=== PATIENT | female | born 1980 | race Caucasian/White ===

== ENCOUNTER 2019-02-04 12:42 | Emergency (ER) | payer SELFPAY, OTHER | END 2019-02-04 16:55 | disposition home or self-care (01) | LOC: JER 12:42 ==

== ENCOUNTER 2019-05-07 06:25 | Inpatient (IN) | payer OTHER ==
[2019-05-07 07:02] VITALS: BMI 66.6
[2019-05-07] MEDS ORDERED: ELECTROLYTE-148 SOLN 500 ML IV ONE ×2 (07:15→07:54)
[2019-05-07] MEDS ORDERED: CITRIC ACID/SODIUM CITRATE 30 ML UNIT-DOSE CUP PO ONE ×2 (07:15→07:54)
[2019-05-07] MEDS ORDERED: ELECTROLYTE-148 SOLN 500 ML IV SCH (07:45)
[2019-05-07] MEDS ORDERED: ELECTROLYTE-148 SOLN 1,000 ML IV SCH (08:00)
--- NOTE | 2019-05-07 08:01 | HP ---
Past Medical History - Admission Chief Complaint: RLTCS History of Present Illness: 38yo @ 39.0wks here for scheduled RLTCS. Denies VB/LOF. No ctx. No LOF. 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 Weeks Gestation by Dates: 39.0 ...EDC by Dates: 05/14/19 Heme/Onc: Yes: Anemia Infectious Disease: No: AIDS, C-Diff, Herpes Zoster, HIV, MRSA, STD's, Tuberculosis, VREF, Other Endocrine: No: [place]'s Disease, [place]'s Disease, Diabetes Insipidus, Diabetes Mellitus, Hyperparathyroidism, Hyperthyroidism, Hypothyroidism, Osteopenia, SIADH, Other - Past Surgical History Past Surgical History: Yes: Bypass, Hx Myomectomy: No Hx Transabdominal Cerclage: No - Smoking History Smoking history: Never smoked Have you smoked in the past 12 months: No - Alcohol/Substance Use Hx Alcohol Use: No - Social History Usual Living Arrangement: Yes: Alone ADL: Independent History of Recent Travel: No Home Medications - Allergies Allergies/Adverse Reactions: Allergies Allergy/AdvReac Type Severity Reaction Status Date / Time No Known Allergies Allergy Verified 05/07/19 06:44 - Home Medications Home Medications: Ambulatory Orders Prenat 115/Iron Fum/Folic/Dss [ 19 Tablet] 1 each PO DAILY 02/04/19 Physical Exam - Maternity Vital Signs: Vital Signs Temperature 98.0 F 05/07/19 06:25 Pulse Rate 67 05/07/19 06:25 Respiratory Rate 20 05/07/19 06:25 Blood Pressure 124/85 05/07/19 06:25 O2 Sat by Pulse Oximetry (%) Constitutional: Yes: Well Nourished, No Distress, Calm - Abdominal Exam/OB Number of Fetuses: Single Presentation: Vertex Contractions: Yes Regularity: Irregular Intensity: Unaware Monitor Mode: External Heart Rate Location: [facility] Category: I Accelerations: Non-Uniform Decelerations: None - Vaginal Exam/OB Vaginal Bleediing: No Presentation: Vertex/Position - Physical Exam Edema: No Assessment/Plan 38yo @ 39wks here for scheduled RLTCS Admit to L&D NPO, IVFs Ancef SCDs Collazo Cat I tracing Risk of procedure reviewed with patient in Ukrainian, including risk of bleeding ( risk of transfusion), infection and injury to bladder/bowel/tubes/ovaries/ vessels/nerves. All questions answered, consent signed. Oseas De La Cruz MD
[2019-05-07] MEDS ORDERED: morphine SULFATE/PF 0.5 MG/ML (2cc Syringe - QUVA) ONE (09:05)
[2019-05-07] MEDS ORDERED: ONDANSETRON 4 MG/2 ML VIAL IVPUSH PRN (09:24)
[2019-05-07] MEDS ORDERED: ceFAZolin SODIUM 1 GM VIAL ONE (09:27)
[2019-05-07] MEDS ORDERED: OXYTOCIN 10 UNITS/ML VIAL ONE ×2 (10:02)
[2019-05-07] MEDS ORDERED: IBUPROFEN 600 MG TABLET (FP) PO PRN (10:05)
[2019-05-07] MEDS ORDERED: oxyCODONE HCL 5 MG TABLET PO PRN (10:05)
[2019-05-07] MEDS ORDERED: METHYLERGONOVINE MALEATE 0.2 MG/1 ML AMP IM PRN (10:05)
--- NOTE | 2019-05-07 10:05 | OP ---
Operative Note - Note: Operative Date: 05/07/19 Pre-Operative Diagnosis: 2 Prior C/S, 39 week Operation: Repeat Low Transverse Findings: VMI, Direct OP, Weight pending, Apgars 9/9. No nuchal. No meconium. Normal tubes and ovaries bilaterally. Post-Operative Diagnosis: Same as Pre-op Surgeon: Virginia De La Cruz Building Construction Superintendent: Maxwell Spencer Anesthesiologist/INFORMATION SYSTEMS ADMINISTRATOR: Donte Bonilla Anesthesia: Spinal Estimated Blood Loss (mls): 500 Drains, Volume Out (mls): 125 (clear urine) Operative Report Dictated: Yes
[2019-05-07] MEDS: OXYTOCIN 20 UNITS in 0.9% NS 20 UNIT/1,000 ML INFUS.BAG IV SCH ×3 (10:30→23:23)
[2019-05-07] MEDS ORDERED: OXYTOCIN 20 UNITS in 0.9% NS 20 UNIT/1,000 ML INFUS.BAG IV ONE (10:31)
--- NOTE | 2019-05-07 10:43 | OP ---
DATE OF OPERATION: 05/07/2019 PREOPERATIVE DIAGNOSIS: Two prior sections 39-week . POSTOPERATIVE DIAGNOSIS: Two prior sections 39-week . PROCEDURE: Repeat low transverse section. ANESTHESIA: Spinal. SURGEON: Virginia De La Cruz MD OPERATIONS LIEUTENANT: KELSEY Mann INTRAVENOUS FLUIDS: Per anesthesia record. ESTIMATED BLOOD LOSS: 500. URINE OUTPUT: 125 mL of clear urine at the end of the procedure. FINDINGS: Viable male , direct OP presentation. Weight pending. Apgars 9, 9. No nuchal. No meconium. Normal tubes and ovaries bilaterally. NATURE OF THE PROCEDURE: After consents were signed, patient was taken to the operating room. Spinal anesthesia was administered. She was placed in supine position. The abdomen was prepped and draped in a normal sterile fashion. A sterile Collazo catheter had been inserted prior to entry into the operating room. Anesthesia was confirmed. Time-out was performed confirming correct patient and procedure. Pfannenstiel incision was made through the prior incision, carried through to the underlying layers until the fascia was nicked in the midline. The fascia was then extended laterally with the Ryan scissors. The inferior aspect of the fascia was grasped with the Clara clamps, tented upwards, and the rectus muscle was dissected off bluntly and with the Ryan scissors. Attention was then paid to the superior aspect, which was taken down in a similar fashion. The rectus muscles were sharply in the midline. The peritoneum was then entered bluntly and extended manually; however, there was insufficient room. The muscles then had to be opened on the patient's right side with the Bovie to allow for sufficient visualization. Bladder blade was then inserted. Vesicouterine reflection was grasped, nicked in the midline, and extended laterally with the Metzenbaum scissors. The bladder flap was then created digitally. The bladder blade was re-inserted. The uterus was incised in a low transversalis fascia. Clear amniotic fluid was noted. The infant's head was delivered without difficulty as were the remaining shoulders and body. Cord was clamped and cut. The infant was handed off to the awaiting pediatric staff. The placenta was cleared manually. The uterus was then cleared of clot and debris. The hysterotomy was closed in a single layer with 1-0 Vicryl with good hemostasis. The fascia was closed with a 0 Vicryl. The skin was closed with a 3-0 Biosyn. Sponge count, lap, needle counts were correct x3. The patient did receive 2 g of Ancef at the start of the procedure. The Collazo catheter was noted to have clear urine without blood. Patient was taken from the operating room to the recovery area in stable condition. MD SKYLA LUCAS/[id number]
--- NOTE | 2019-05-07 12:02 | SURG ---
Surgery Cloth Finisher Note Cloth Finisher: Maxwell Spencer PA-C (Suzy) Date of Service: 05/07/19 Diagnosis: Two prior , 39 week Procedure: Repeat low transverse I was present for the entirety of the operative procedure. For further detail, please refer to operative report. Visit type - Case Type Case Type: Scheduled - Emergency Emergency Visit: No - New patient This patient is new to me today: Yes Date on this admission: 05/07/19 - Critical Care Critical Care patient: No
[2019-05-07] MEDS: IBUPROFEN 800 MG/8 ML IJ IVPB PRN (12:15)
[2019-05-08] MEDS: IBUPROFEN 800 MG/8 ML IJ IVPB PRN (01:19)
--- NOTE | 2019-05-08 08:42 | PN ---
Progress Note (short form) - Note Progress Note: pod 1 , doing well, has mild cramps Last Vital Signs Temp Pulse Resp BP Pulse Ox 98.6 F 67 18 120/67 99 05/08/19 06:00 05/08/19 06:00 05/08/19 08:00 05/08/19 06:00 05/07/19 22:00 abdomen soft, no distension, no cva uterus firm incision dry, clean no calf tenderness no excess vaginal bleeding plan ambulate, advance diet, cbc
[2019-05-08] MEDS: PRENATAL VITAMINS W/ FOLIC ACID TABLET (FP) PO SCH (09:18)
[2019-05-08 09:40] LABS: BASO % 0.3 % (0-2.0); EOS % 0.5 % (0-4.5); HEMATOCRIT 34.6 % (32.4-45.2); HEMOGLOBIN 11.5 GM/dL (10.7-15.3); MCH 28.5 pg (25.7-33.7); MCHC 33.3 g/dl (32.0-36.0); MEAN CELL VOLUME 85.5 fl (80-96); MEAN PLT VOLUME 9.6 fl (7.5-11.1); MONO % 6.8 % (3.8-10.2); NEUT % 71.4 % (42.8-82.8); PLATELET COUNT 200 K/MM3 (134-434); RBC 4.05 M/mm3 (3.60-5.2); RDW 13.3 % (11.6-15.6); WHITE BLOOD COUNT 11.2 K/mm3 (4.0-10.0)
[2019-05-08] MEDS ORDERED: DIPHTH,PERTUSS(ACELL),TET 0.5 ML DISP.SYRIN IM ONE (10:00)
[2019-05-08] MEDS ORDERED: BISACODYL 10 MG SUPP.RECT RC PRN (10:05)
--- NOTE | 2019-05-08 11:14 | PN ---
Progress Note (short form) - Note Progress Note: Anesthesia POD#1 S/P under Spinal A and Duramorph. VSS,no pain,no N/V,legs strong as before. No Complications seen. Etta Clay MD.
[2019-05-08] MEDS: IBUPROFEN 600 MG TABLET (FP) PO PRN ×2 (13:54→22:05)
[2019-05-08] MEDS: ACETAMINOPHEN 325 MG TABLET (FP) PO PRN ×2 (13:55→22:06)
[2019-05-08] MEDS: SIMETHICONE 80 MG TAB.CHEW (FP) PO PRN (22:08)
--- NOTE | 2019-05-09 08:25 | PN ---
Progress Note (short form) - Note Progress Note: pod 2 ambulating, tolerating diet CBC, BMP 05/08/19 08:55 Last Vital Signs Temp Pulse Resp BP Pulse Ox 98.9 F 79 18 126/69 99 05/08/19 22:00 05/08/19 22:00 05/08/19 22:00 05/08/19 22:00 05/07/19 22:00 abdomen soft, no distension, no cva . BS present incision dry, clean no calf tenderness no excess vaginal bleeding plan ambulate, cbc in am pain management
[2019-05-09] MEDS: IBUPROFEN 600 MG TABLET (FP) PO PRN ×2 (08:58→17:22)
[2019-05-09] MEDS: SIMETHICONE 80 MG TAB.CHEW (FP) PO PRN ×2 (08:58→17:21)
[2019-05-09] MEDS: ACETAMINOPHEN 325 MG TABLET (FP) PO PRN ×2 (08:58→17:21)
[2019-05-09] MEDS: PRENATAL VITAMINS W/ FOLIC ACID TABLET (FP) PO SCH (09:00)
[2019-05-10 07:33] LABS: BASO % 0.4 % (0-2.0); EOS % 1.7 % (0-4.5); HEMATOCRIT 31.3 % (32.4-45.2); HEMOGLOBIN 10.6 GM/dL (10.7-15.3); LYMPH % 47.4 % (8-40); MCH 28.7 pg (25.7-33.7); MCHC 33.8 g/dl (32.0-36.0); MEAN CELL VOLUME 84.8 fl (80-96); MEAN PLT VOLUME 9.5 fl (7.5-11.1); MONO % 6.6 % (3.8-10.2); NEUT % 43.9 % (42.8-82.8); PLATELET COUNT 227 K/MM3 (134-434); RDW 13.3 % (11.6-15.6); WHITE BLOOD COUNT 8.7 K/mm3 (4.0-10.0)
[2019-05-10 08:48] VITALS: BP 126/78; PULSE 75; TEMP 97.9
--- NOTE | 2019-05-10 09:03 | DS ---
Physical Exam-WELL LOGGING CAPTAIN Vital Signs: Vital Signs Temperature 97.9 F 05/10/19 08:45 Pulse Rate 75 05/10/19 08:45 Respiratory Rate 18 05/10/19 08:45 Blood Pressure 126/78 05/10/19 08:45 O2 Sat by Pulse Oximetry (%) 99 05/07/19 22:00 Constitutional: Yes: Well Nourished, No Distress, Calm Eyes: Yes: WNL, Conjunctiva Clear, EOM Intact HENT: Yes: WNL, Atraumatic, Normocephalic Neck: Yes: WNL, Supple, Trachea Midline Cardiovascular: Yes: WNL, Regular Rate and Rhythm Respiratory: Yes: WNL, Regular, CTA Bilaterally Gastrointestinal: Yes: WNL ...Rectal Exam: Yes: WNL Renal/: Yes: WNL ....Post : Yes: Uterus firm, Uterus non-tender, Slight lochia rubra Breast(s): Yes: WNL Musculoskeletal: Yes: WNL Extremities: Yes: WNL Edema: LLE: Trace, RLE: Trace Integumentary: Yes: WNL Wound/Incision: Yes: Clean/Dry, Well Approximated, Sutures Intact Neurological: Yes: WNL, Alert, Oriented ...Motor Strength: WNL Psychiatric: Yes: WNL, Alert, Oriented Labs: CBC, BMP 05/10/19 05:47 Delivery - Delivery Section: Repeat Type of Anesthesia: Spinal Episiotomy/Laceration: None EBL (cc): 500 Delivery, Single - Stages of Labor Date of Delivery: 05/07/19 Time of Delivery: 09:36 Time Placenta Delivered: 09:37 Placenta: Yes: Expressed - Condition of Business Area Manager/Auto Heater Mechanic Present: Yes Name: Tammie Jean Gender: Male Weight: 7 lb 3 oz Position: OP Total Hours ROM (Hrs/Mins): 2 minutes - 1 Minute Total Score: 9 5 Minutes Total Score: 9 - [place] Feeding Plan Initial Plan: Elected not to breastfeed exclusively throughout hospitalization Discharge Summary Reason For Visit: SCHEDULED C/SECTION Procedures: Principal: repeat lst c/s Condition: Stable - Instructions Diet, Activity, Other Instructions: Regular Diet Follow up in one week with Dr. De La Cruz or an incision check Referrals: Virginia De La Cruz MD [Staff Physician] - Disposition: HOME - Home Medications Comprehensive Discharge Medication List: Ambulatory Orders Prenat 115/Iron Fum/Folic/Dss [ 19 Tablet] 1 each PO DAILY 02/04/19 Ibuprofen 600 mg PO Q6H PRN #30 tablet 05/07/19 Oxycodone HCl/Acetaminophen [Percocet 5-325 mg Tablet -] 1 - 2 tab PO Q6H PRN # 20 tab MDD 4 05/07/19
[2019-05-10] MEDS: ACETAMINOPHEN 325 MG TABLET (FP) PO PRN (09:59)
[2019-05-10] MEDS: SIMETHICONE 80 MG TAB.CHEW (FP) PO PRN (09:59)
[2019-05-10] MEDS: IBUPROFEN 600 MG TABLET (FP) PO PRN (09:59)
[2019-05-10] MEDS: PRENATAL VITAMINS W/ FOLIC ACID TABLET (FP) PO SCH (09:59)
--- NOTE | 2019-05-13 17:59 | PATH ---
Surgical Pathology Report Patient Name: MARLEN FISCHER Med. Rec. 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 Electronically Signed Marlen Banks M.D. Gross Description The specimen is received fresh labeled placenta and is a 652 gram, 23 x 15 x 1.5 cm. placenta with attached membranes and umbilical cord. The attached membranes are white and opaque and insert marginally. The umbilical cord measures 60 cm. in length and averages 1.5-2 cm. in diameter, focally edematous and show patchy hemorrhage (2 cm). The cord inserts eccentrically, 3 cm. to the nearest margin. No true knots or strictures are identified. Cut surface of the umbilical cord reveals 3 vessels. The surface is kay-blue with minimal fibrin deposition and appropriate caliber vessels. The maternal surface is red-brown with focal defects. Sectioning reveals red-brown, spongy parenchyma. No lesions are identified. Knitter Hand sections are submitted in three cassettes as follows: 1- membrane rolls and umbilical cord; 2-3- full thickness sections of placenta. MLSZ/05/08/2019 sanml/05/08/2019
== END 2019-05-10 11:30 | disposition home or self-care (01) | DRG 540 ==
LOC: JLDR 06:25 → J3W 11:40
PROVIDERS: ADMIT Obstetrics & Gynecology; ATTEND Obstetrics & Gynecology
PROC: 10D00Z1 Extraction of Products of Conception, Low, Open Approach (ICD-10-PCS; principal; 2019-05-07)
DX: O34.219 Maternal care for unspecified type scar from previous cesarean delivery (principal); Z3A.39 39 weeks gestation of pregnancy; Z37.0 Single live birth
CPT/HCPCS: 36415; 85025; 88307-TC; 90715

== ENCOUNTER 2019-05-13 00:48 | Emergency (ER) | payer OTHER ==
[2019-05-13 01:14] VITALS: BMI 42.9
[2019-05-13] MEDS ORDERED: ACETAMINOPHEN 325 MG TABLET (FP) PO ONE (02:14)
--- NOTE | 2019-05-13 02:17 | PDOC ---
History of Present Illness - General Chief Complaint: Headache Stated Complaint: HEADACHE, S/P C/SECTION Time Seen by Provider: 05/13/19 02:07 History Source: Patient - History of Present Illness Initial Comments: 05/13/19 03:43 38 year old female c/o headache, with photosensitivity. patient is s/p c- section 6 days ago. patient has a history of migraines reports headache similiar to migraines. denies abdominal pain, fever, nausea, vomiting Past History - Past Medical History Allergies/Adverse Reactions: Allergies Allergy/AdvReac Type Severity Reaction Status Date / Time No Known Allergies Allergy Verified 05/07/19 06:44 Home Medications: Ambulatory Orders Ibuprofen 600 mg PO Q6H PRN #30 tablet 05/07/19 Oxycodone HCl/Acetaminophen [Percocet 5-325 mg Tablet -] 1 - 2 tab PO Q6H PRN # 20 tab MDD 4 05/07/19 Asthma: No Cancer: No Cardiac Disorders: No COPD: No Diabetes: No HTN: No Seizures: No Thyroid Disease: No - Surgical History GI Surgery: Yes - Reproductive History (#): 3 Para: 2 - Suicide/Smoking/Psychosocial Hx Smoking History: Never smoked Have you smoked in the past 12 months: No Hx Alcohol Use: No Drug/Substance Use Hx: No Hx Substance Use Treatment: No *Physical Exam - Vital Signs Last Vital Signs Temp Pulse Resp BP Pulse Ox 98.2 F 66 18 145/82 98 05/13/19 01:11 05/13/19 01:11 05/13/19 01:11 05/13/19 01:11 05/13/19 01:11 - Physical Exam General Appearance: Yes: Appropriately Dressed Respiratory/Chest: positive: Lungs Clear, Normal Breath Sounds Cardiovascular: positive: Regular Rhythm, Regular Rate Gastrointestinal/Abdominal: positive: Normal Bowel Sounds, Other (incision site clean dry and intact) Integumentary: positive: Normal Color, Dry, Warm Neurologic: positive: Fully Oriented, Alert, Normal Mood/Affect ED Treatment Course - LABORATORY CBC & Chemistry Diagram: 05/13/19 03:20 05/13/19 03:20 Progress Note - Progress Note Progress Note: A: headache r/o HELLP syndrome P: LFTS LABS tylenol office clerk assistant consult Medical Decision Making - Medical Decision Making 05/13/19 04:[address] oleary. labs wnl. patient o follow up in clinic *DC/Admit/Observation/Transfer Diagnosis at time of Disposition: Headache Qualifiers: Headache type: tension-type Headache chronicity pattern: acute headache Intractability: not intractable Qualified Code(s): G44.209 - Tension-type headache, unspecified, not intractable - Discharge Dispostion Disposition: HOME - Referrals Referrals: Thad Velasco MD [Primary Care Provider] - - Patient Instructions Printed Discharge Instructions: Tension Headache Additional Instructions: drink plenty of fluids follow up with your doctor as soon as possible. Additional Instructions: * Please call your personal physician to report your Emergency Department visit and to report your progress, if any. * If there is no improvement in symptoms in 2 days call your physician. * Return to the Emergency Department for any worsening symptoms. - Post Discharge Activity
--- NOTE | 2019-05-13 02:18 | PDOC ---
*Physical Exam - Vital Signs Last Vital Signs Temp Pulse Resp BP Pulse Ox 98.2 F 66 18 145/82 98 05/13/19 01:11 05/13/19 01:11 05/13/19 01:11 05/13/19 01:11 05/13/19 01:11 ED Treatment Course - LABORATORY CBC & Chemistry Diagram: 05/13/19 03:20 05/13/19 03:20 Medical Decision Making - Medical Decision Making 05/13/19 02:17 Patient seen by the advanced practice provider under my direct supervision. Ancillary testing reviewed as necessary. I agree with plan as outlined by the advanced practice provider. *DC/Admit/Observation/Transfer Diagnosis at time of Disposition: Headache Qualifiers: Headache type: tension-type Headache chronicity pattern: acute headache Intractability: not intractable Qualified Code(s): G44.209 - Tension-type headache, unspecified, not intractable - Discharge Dispostion Disposition: HOME - Referrals Referrals: Thad Velasco MD [Primary Care Provider] - - Patient Instructions Printed Discharge Instructions: Tension Headache Additional Instructions: drink plenty of fluids follow up with your doctor as soon as possible. Additional Instructions: * Please call your personal physician to report your Emergency Department visit and to report your progress, if any. * If there is no improvement in symptoms in 2 days call your physician. * Return to the Emergency Department for any worsening symptoms. - Post Discharge Activity
[2019-05-13] MEDS ORDERED: ACETAMINOPHEN 325 MG TABLET (FP) ONE (02:24)
[2019-05-13 03:39] LABS: BASO % 0.5 % (0-2.0); EOS % 2.2 % (0-4.5); HEMATOCRIT 29.8 % (32.4-45.2); HEMOGLOBIN 9.6 GM/dL (10.7-15.3); LYMPH % 55.7 % (8-40); MCH 27.9 pg (25.7-33.7); MCHC 32.3 g/dl (32.0-36.0); MEAN CELL VOLUME 86.3 fl (80-96); MEAN PLT VOLUME 8.7 fl (7.5-11.1); NEUT % 32.6 % (42.8-82.8); PLATELET COUNT 248 K/MM3 (134-434); RBC 3.45 M/mm3 (3.60-5.2); RDW 13.3 % (11.6-15.6); WHITE BLOOD COUNT 6.7 K/mm3 (4.0-10.0)
[2019-05-13 04:09] LABS: BLOOD UREA NITROGEN 7.7 mg/dL (7-18); CALCIUM 8.2 mg/dL (8.5-10.1); CREATININE 0.4 mg/dL (0.55-1.3); POTASSIUM 3.6 mmol/L (3.5-5.1)
[2019-05-13 04:23] LABS: ALBUMIN 2.5 g/dl (3.4-5.0); BILIRUBIN,DIRECT 0.1 mg/dL (0.0-0.2); BILIRUBIN,TOTAL 0.3 mg/dL (0.2-1); TOT PROT 5.5 g/dl (6.4-8.2)
[2019-05-13 05:32] VITALS: BP 145/84; PULSE 63; TEMP 97.5
== END 2019-05-13 05:00 | disposition home or self-care (01) ==
LOC: JER 00:48
DX: G44.209 Tension-type headache, unspecified, not intractable (principal)
CPT/HCPCS: 36415; 80048; 80076; 82977; 84450; 84550; 85025; 85044; 99282-25

== ENCOUNTER 2022-01-17 14:00 | Inpatient (IN) | payer OTHER ==
[2022-01-24] MEDS ORDERED: CITRIC ACID/SODIUM CITRATE 30 ML UNIT-DOSE CUP PO ONE (12:07)
[2022-01-24 12:12] VITALS: BMI 41.3
[2022-01-24] MEDS ORDERED: ELECTROLYTE-148 SOLN 1,000 ML IV SCH (12:15)
[2022-01-24] MEDS ORDERED: morphine SULFATE/PF 1 MG/2 ML (2cc Syringe - QUVA) ONE (13:02)
[2022-01-24] MEDS ORDERED: BENZOCAINE 20% 57 GM BOTTLE TP PRN (13:57)
[2022-01-24] MEDS ORDERED: METHYLERGONOVINE MALEATE 0.2 MG/1 ML AMP IM PRN (13:57)
[2022-01-24] MEDS ORDERED: ACETAMINOPHEN 325 MG TABLET (FP) PO PRN (13:57)
[2022-01-24] MEDS ORDERED: OXYTOCIN 20 UNITS in 0.9% NS 20 UNIT/1,000 ML INFUS.BAG IV SCH (14:00)
[2022-01-24] MEDS ORDERED: OXYTOCIN 20 UNITS in 0.9% NS 20 UNIT/1,000 ML INFUS.BAG IV ONE (14:17)
[2022-01-24] MEDS ORDERED: ONDANSETRON 4 MG/2 ML VIAL IVPUSH PRN (14:46)
[2022-01-24] MEDS: IBUPROFEN 800 MG/8 ML IJ IVPB PRN (16:28)
[2022-01-24] MEDS: FERROUS SO4 325 MG TABLET (FP) PO SCH (22:11)
[2022-01-25] MEDS ORDERED: oxyCODONE HCL 5 MG TABLET PO PRN (01:57)
[2022-01-25] MEDS: IBUPROFEN 800 MG/8 ML IJ IVPB PRN (06:29)
[2022-01-25] MEDS: FERROUS SO4 325 MG TABLET (FP) PO SCH ×2 (09:48→21:53)
[2022-01-25] MEDS: PRENATAL VITAMINS W/ FOLIC ACID TABLET (FP) PO SCH (09:48)
[2022-01-25 09:58] LABS: BASO % 0.2 % (0-2.0); EOS % 0.3 % (0-4.5); HEMATOCRIT 31.3 % (32.4-45.2); HEMOGLOBIN 10.7 GM/dL (10.7-15.3); LYMPH % 19.7 % (8-40); MCH 27.9 pg (25.7-33.7); MCHC 34.1 g/dl (32.0-36.0); MEAN CELL VOLUME 81.8 fl (80-96); MEAN PLT VOLUME 9.1 fl (7.5-11.1); MONO % 7.1 % (3.8-10.2); NEUT % 72.7 % (42.8-82.8); PLATELET COUNT 205 10^3/uL (134-434); RBC 3.83 M/mm3 (3.60-5.2); RDW 14.7 % (11.6-15.6); WHITE BLOOD COUNT 9.6 K/mm3 (4.0-10.0)
[2022-01-25] MEDS ORDERED: BISACODYL 10 MG SUPP.RECT RC PRN (13:57)
[2022-01-25] MEDS: IBUPROFEN 600 MG TABLET (FP) PO PRN ×2 (14:07→20:19)
[2022-01-25] MEDS: SIMETHICONE 80 MG TAB.CHEW (FP) PO PRN ×2 (14:08→20:20)
[2022-01-26] MEDS: FERROUS SO4 325 MG TABLET (FP) PO SCH ×2 (09:49→21:27)
[2022-01-26] MEDS: PRENATAL VITAMINS W/ FOLIC ACID TABLET (FP) PO SCH (09:49)
[2022-01-26] MEDS: IBUPROFEN 600 MG TABLET (FP) PO PRN ×3 (09:55→20:39)
[2022-01-26] MEDS: SIMETHICONE 80 MG TAB.CHEW (FP) PO PRN ×3 (09:56→20:39)
[2022-01-27 07:46] LABS: BASO % 0.4 % (0-2.0); EOS % 1.7 % (0-4.5); HEMATOCRIT 27.5 % (32.4-45.2); HEMOGLOBIN 9.3 GM/dL (10.7-15.3); LYMPH % 32.4 % (8-40); MCH 27.4 pg (25.7-33.7); MCHC 33.6 g/dl (32.0-36.0); MEAN CELL VOLUME 81.6 fl (80-96); MEAN PLT VOLUME 9.3 fl (7.5-11.1); MONO % 6.6 % (3.8-10.2); NEUT % 58.9 % (42.8-82.8); PLATELET COUNT 218 10^3/uL (134-434); RBC 3.37 M/mm3 (3.60-5.2); RDW 14.4 % (11.6-15.6)
[2022-01-27] MEDS: PRENATAL VITAMINS W/ FOLIC ACID TABLET (FP) PO SCH (09:48)
[2022-01-27] MEDS: IBUPROFEN 600 MG TABLET (FP) PO PRN (09:48)
[2022-01-27] MEDS: FERROUS SO4 325 MG TABLET (FP) PO SCH (09:48)
[2022-01-27] MEDS: SIMETHICONE 80 MG TAB.CHEW (FP) PO PRN (09:49)
[2022-01-27 12:10] VITALS: BP 127/84; PULSE 89; TEMP 98.7
== END 2022-01-27 14:05 | disposition home or self-care (01) | DRG 540 ==
LOC: JLDR 01-24 11:15 → J3W 01-24 16:14
PROVIDERS: ADMIT Obstetrics & Gynecology; ATTEND Obstetrics & Gynecology
PROC: 10D00Z1 Extraction of Products of Conception, Low, Open Approach (ICD-10-PCS; principal; 2022-01-24)
PROC: 0UL70ZZ Occlusion of Bilateral Fallopian Tubes, Open Approach (ICD-10-PCS; 2022-01-24)
DX: O34.211 Maternal care for low transverse scar from previous cesarean delivery (principal); Z3A.39 39 weeks gestation of pregnancy; Z37.0 Single live birth; Z30.2 Encounter for sterilization
CPT/HCPCS: 36415; 71045-TC-FY; 85025; 88302-TC; 88307-TC